=== PATIENT | male | born 1945 | race Caucasian/White ===

== ENCOUNTER 2017-06-19 10:20 | Inpatient (IN) | payer OTHER ==
[~2017-06-19] VITALS: Ht 188 cm; Wt 77.2 kg
[2017-06-19 10:42] VITALS: Ht 188 cm; Wt 77.2 kg
[2017-06-19 11:23] LABS: BASOPHIL % 0.1 % (0-2); PLATELET COUNT 220 x10^3mcL (130-400); RED CELL DISTRIBUTION WIDTH 12.9 % (11.5-14.5)
[2017-06-19 11:29] LABS: CALCIUM 8.4 mg/dL (8.5-10.1); CARBON DIOXIDE 27.1 mmol/L (21-32); CHLORIDE SERUM 101 mmol/L (98-107); GFR1 > 60 mL/min; GLUCOSE SERUM 188 mg/dL (74-106); POTASSIUM SERUM 3.7 mmol/L (3.5-5.1); SODIUM SERUM 138 mmol/L (136-145)
[2017-06-19 11:34] LABS: ALBUMIN 4.7 g/dL (3.4-5.0); ALKALINE PHOSPHATASE 80 U/L (46-116); ALT/SGPT 19 U/L (16-63); AST/SGOT 21 U/L (15-37); BILIRUBIN TOTAL 1.1 mg/dL (0.20-1.00); TOTAL PROTEIN, SERUM 7.4 g/dL (6.4-8.2)
[2017-06-19 14:05] VITALS: BP 119/67
[2017-06-19 14:34] LABS: CHOLESTEROL/HDL RATIO 3.1; MAGNESIUM 2.1 mg/dL (1.8-2.4); PHOSPHOROUS 2.8 mg/dL (2.5-4.9)
[2017-06-19 14:43] LABS: T3 TOTAL 1.01 ng/mL
[2017-06-19 14:45] LABS: FREE T4 1.2 ng/dL (0.76-1.46); FREE THYROXINE INDEX 3.3 ug/dL (1.4-4.5); T4(THYROXINE) 10.1 ug/dL (4.7-13.3)
[2017-06-19 15:10] LABS: microscopic required? NO
[2017-06-19 15:17] LABS: UA SPECIFIC GRAVITY 1.025 (1.005-1.035); urine erythrocyte NEGATIVE (NEGATIVE)
[2017-06-19 17:20] VITALS: BP 130/73
[2017-06-19 22:07] VITALS: BP 117/66
[2017-06-20 05:34] VITALS: BP 101/70
[2017-06-20 06:05] LABS: BASOPHIL % 0.4 % (0-2); PLATELET COUNT 192 x10^3mcL (130-400); RED CELL DISTRIBUTION WIDTH 12.8 % (11.5-14.5)
[2017-06-20 06:27] LABS: CALCIUM 8.1 mg/dL (8.5-10.1); CARBON DIOXIDE 25.5 mmol/L (21-32); CHLORIDE SERUM 107 mmol/L (98-107); CREATININE SERUM 0.9 mg/dL (0.7-1.3); GLUCOSE SERUM 100 mg/dL (74-106); POTASSIUM SERUM 3.8 mmol/L (3.5-5.1); SODIUM SERUM 142 mmol/L (136-145)
[2017-06-20] MEDS ORDERED: SIMVASTATIN10 M1 PO (06:52)
[2017-06-20] MEDS ORDERED: NEU300 PO (06:52)
[2017-06-20 09:15] VITALS: BP 104/68
[2017-06-20 12:10] VITALS: BP 117/65
[2017-06-20] MEDS ORDERED: IBUPROFEN800 MG PO (13:18)
[2017-06-20] MEDS ORDERED: FLE10 PO (13:18)
== END 2017-06-20 15:28 | disposition home or self-care (01) | DRG 205 ==
LOC: ED 10:20 → DU 13:03
PROVIDERS: Emergency Medicine; Family Medicine
DX: M94.0 Chondrocostal junction syndrome [Tietze] (principal); N17.0 Acute kidney failure with tubular necrosis; R55 Syncope and collapse; M50.122 Cervical disc disorder at C5-C6 level with radiculopathy; M50.11 Cervical disc disorder with radiculopathy, high cervical region; M19.012 Primary osteoarthritis, left shoulder; M19.011 Primary osteoarthritis, right shoulder; E83.51 Hypocalcemia; I10 Essential (primary) hypertension; R73.03 Prediabetes; E80.6 Other disorders of bilirubin metabolism; Z68.21 Body mass index [BMI] 21.0-21.9, adult
CPT/HCPCS: 83880; 84439; J1885; J7030; Q0092

== ENCOUNTER 2018-07-31 09:03 | Inpatient (IN) | payer OTHER ==
[~2018-07-31] VITALS: Ht 188 cm; Wt 66.5 kg
[~2018-07-31 09:03] MED LIST: FLE10 PO; IBUPROFEN800 MG PO; NEU300 PO; SIMVASTATIN10 M1 PO
[2018-07-31 09:10] VITALS: Ht 188 cm; Wt 66.5 kg
--- NOTE | 2018-07-31 09:12 | NUR ---
PT RETURNED TO LOBBY PENDING ROOM AVAILABILITY. VSS. RESPS E/U. NO S/S OF DISTRESS NOTED.
[2018-07-31 10:43] LABS: CALCIUM 8.9 mg/dL (8.5-10.1); CARBON DIOXIDE 31.2 mmol/L (21-32); CHLORIDE SERUM 105 mmol/L (98-107); CREATININE SERUM 1.1 mg/dL (0.7-1.3); GLUCOSE SERUM 139 mg/dL (74-106); POTASSIUM SERUM 4.6 mmol/L (3.5-5.1); SODIUM SERUM 140 mmol/L (136-145)
[2018-07-31 10:46] LABS: BASOPHIL % 0.2 % (0-2); PLATELET COUNT 248 x10^3mcL (130-400); RED CELL DISTRIBUTION WIDTH 12.5 % (11.5-14.5)
[2018-07-31 10:48] LABS: ALBUMIN 4.3 g/dL (3.4-5.0); ALKALINE PHOSPHATASE 82 U/L (46-116); ALT/SGPT 32 U/L (16-63); AST/SGOT 15 U/L (15-37); BILIRUBIN TOTAL 0.6 mg/dL (0.20-1.00); TOTAL PROTEIN, SERUM 7.2 g/dL (6.4-8.2)
--- NOTE | 2018-07-31 11:24 | NUR ---
RECEIVED IN OB ROOM, AWAKE ALERT ORIENTED, STATED HAS BEEN HAVING ISSUES WITH HIS LOWER ABDOMEN SINCE A LONG TIME, NOW SINCE 4 DAYS STARTED TO HAVE MORE PAIN TO LOWER ABDOMEN,
[2018-07-31 11:30] LABS: LIPASE 3326 IU/L (73-393)
--- NOTE | 2018-07-31 13:02 | NUR ---
US DONE, MEDICATED ORDERD FOR ABDOMINAL PAIN
[2018-07-31] MEDS ORDERED: ATENOLOL25 MG PO (13:06)
--- NOTE | 2018-07-31 13:46 | NUR ---
REPORT GIVEN TO OSWALDO
[2018-07-31 14:23] VITALS: BP 126/74
--- NOTE | 2018-07-31 14:25 | NUR ---
RECEIVED PT FROM ED VIA [facility]. ORIENTED PT TO ROOM AND SURROUNDINGS. IV NOTED TO RH PATENT AND INTACT. INSTRUCTED PT ON THE USE OF CALL LIGHT FOR ASSISTANCE. ENDORSED PT TO PRIMARY NURSE
[2018-07-31 14:31] LABS: CHOLESTEROL/HDL RATIO 4.7
--- NOTE | 2018-07-31 15:00 | NUR ---
BEGAN PATIENT CARE. FOUND PATIENT LAYING SEMIT FOWLERS IN BED, A/O X4, FOLLOWING COMMANDS, CALM AND COOPERATIVE, BREATHING UNALABORED WITH NO APPARENT DISTRESS. IV NOTED IN RIGHT HAND, SITE WITHIN NOMAL LIMITS, PATENT AND INTACT. PATINT TAUGHT ABOUT PAIN CONTROL PART OF PLAN. INSTRUCTED TO USE CALL LIGHT AT FIRST SIGN OF PAIN. PATIENT RECEPTIVE OF TEACHING. CALL LIGHT WITHIN REACH AND BED IN LOWEST POSITION.
--- NOTE | 2018-07-31 17:29 | NUR ---
ADMINISTERED GABAPENTIN PER ORDERS. PATIENT RESTING COMFROTABLE AT THIS TIME, NOT COMPLAINING OF PAIN. FAMILY AT BEDSIDE. TAUGHT ABOUT USING CALL LIGHT BEFORE PAIN STARTS. CALL LIGHT WITHIN REACH.
[2018-07-31 17:51] VITALS: BP 119/69
--- NOTE | 2018-07-31 20:40 | NUR ---
PT IS ALERT AND ORIENTED X4. BREATHING IS EVEN AND UNLABORED. PT SHOWS NO SIGNS OF RESP DISTRESS. PT HAS ACTIVE BOWEL SOUNDS, ABD FLAT AND SOFT, LAST BM WAS 07/31/18 DIARRHEA. PT IS AMBULATORY WITH NO RESTRICTIONS. PT HAS IV ON RH INFUSIGN WITH N/S INTACT AND PATENT. PT COMPLAINS OF LEFT SIDED ABD PAIN RATES /10. PT MEDICATED WITH MORPHINE. PT REMIANS ON NPO. WILL CONTINUE TO MONITOR.
--- NOTE | 2018-08-01 02:55 | NUR ---
PT AWAKE COMPLAINING OF N/V , PT WAS MEDICATED WITH ZOFRAN PRN. WILL REASSES IN 3O MIN AND CONUTINUE TO MONITOR. PT BRETHING IS EVEN AND UNLABORED.
--- NOTE | 2018-08-01 05:42 | NUR ---
PT SLEPT MOST OF THE NIGHT. NO SIGNS OF DISTRESS OR SOB. BREATHING EVEN AND UNLABORED. PT WAS NAUSES AT NIGHT GAVE ZOFRAN X1. PT WAS REASSED AND NO MORE NAUSEA. MEDICATED WITH MORPHINE X1 WITH ABD PAIN WITH RELIEF. PT WAS COPPERATIVE WITH NURSING CARE. NO DISTRESS NOTED WILL CONTINUE TO MONITOR.
[2018-08-01 05:48] VITALS: BP 102/58
[2018-08-01 06:28] LABS: BASOPHIL % 0.3 % (0-2); PLATELET COUNT 203 x10^3mcL (130-400)
[2018-08-01 06:36] LABS: CALCIUM 8.1 mg/dL (8.5-10.1); CARBON DIOXIDE 25.8 mmol/L (21-32); CHLORIDE SERUM 107 mmol/L (98-107); CREATININE SERUM 0.8 mg/dL (0.7-1.3); GLUCOSE SERUM 103 mg/dL (74-106); SODIUM SERUM 142 mmol/L (136-145)
--- NOTE | 2018-08-01 07:10 | NUR ---
RECEIVED PT FROM SUPPLY CHAIN DIRECTOR RN. Ketty/CHERYL. MED SURG. DENIES CHEST PAIN/PRESSURE. RESPIRATIONS EQUAL AND UNLABORED ON RA. DENIES SOB AT THIS TIME. PT STATES HE HAS NAUSEA ON AND OFF. PT STATES ON AND OFF ABDOMINAL PAIN. PT STATE HE CURRENTLY FEELS LIKE HE JUST HAS AN UPSET STOMACH. IV PATENT AND INFUSING TO RW. NO REDNESS OR SWELLING NOTED. WILL CONTINUE TO MONITOR. CALL LIGHT IN REACH. BED IN LOWEST POSITION.
--- NOTE | 2018-08-01 07:24 | NUR ---
SHIFT OFF REPORT HANDED TO NURSE BRIGITTE RN. ALL QAUESTION ANSWERED ANS CONCERNS. PT IS MADE AWARE.
[2018-08-01 09:08] VITALS: BP 129/63
--- NOTE | 2018-08-01 09:24 | NUR ---
PT SITTING UP AT BEDSIDE. NO ACUTE RESP DISTRESS NOTED ON RA. PT STATE HE JUST FEELS TERRIBLE. PT STATES ABDOMINAL PAIN ON AND OFF. PT STATES NAUSEA IS ON AND OFF. GIVEN PO MEDS. TOLERATED WELL. PT REFUSED COLACE. PT STATES I DONT NEED IT. I AM HAVING DIARRHEA. IV PATENT AND INFUSING. NO REDNESS OR SWELLING NOTED. WILL CONTINUE TO MONITOR. CALL LIGHT IN REACH. BED IN LOWEST POSITION.
--- NOTE | 2018-08-01 12:18 | NUR ---
PT SITTING UP IN BED. NO ACUTE RESP DISTRESS NOTED ON RA. PT STATES HIS PAIN IS INCREASING TO RUQ ABDOMEN. MEDICATED PER EMAR. IV FLUSHED WELL. NO REDNESS OR SWELLING NOTED. PT ALSO C/O NAUSEA. MEDICATED PER EMAR. PT AMBULATING IN HALLWAY, TOLERATING WELL. WILL CONTINUE TO MONITOR. CALL LIGHT IN REACH. BED IN LOWEST POSITION.
--- NOTE | 2018-08-01 13:44 | NUR ---
PT IN BED RESTING. RESPIRATIONS EQUAL AND UNLABORED ON RA. DENIES SOB. PT STATES PAIN IS THE SAME. PT DOES NOT WANT PAIN MEDICATION AT THIS TIME. PT STATES "MAYBE ILL HAVE IT TONIGHT TO HELP ME SLEEP. PT DENIES ANY NAUSEA AT THIS TIME. GIVEN PO MEDS. TOLERATED WELL. PT ASKING FOR ICE CHIPS AND WATER. SPOKE WITH BLANCA GORDILLO, PER BLANCA PT IS OKAY TO HAVE ICE CHIPS AND SMALL SIPS OF WATER. PT GIVEN ICE CHIPS. WILL CONTINUE TO MONITOR. CALL LIGHT IN REACH. BED IN LOWEST POSITION.
[2018-08-01 17:04] VITALS: BP 103/61
--- NOTE | 2018-08-01 19:05 | NUR ---
RECIEVED SHIFT HAND REPORT FRON NURSE BRIGGS. ALL QUESTIONS AND CONCERNES WERE ADDRESSED. WILL CONITNUE TO MONITOR AND COMPLETE ASSESSMENT.
--- NOTE | 2018-08-01 19:30 | NUR ---
PT IS ALERT AND OREINTED X4.PT BREATHING IS UNLABORED AND EVEN. NO SIGNS OF RESP DISTRESS. PT IS COMPLAINING OF ABDOMINAL PAIN, STATES A 09/04. WILL MEDICATE PT AND REASSES. PT ABD SOFT AND ACTIVE BOWEL SOUNDS ON ALL FOUR QUADRANTS. NO BM TODAY 08/01/18. PT IS AMBULATORY. IV IS ON RH INFUSING WITH NS AT 150 ML. WILL CONTINUE TO MONITOR PT FOR PAIN AND ANY NEEDS.
--- NOTE | 2018-08-01 20:13 | NUR ---
PT WAS MEDICATED WITH TORADOL 30 MG IV FOR ABDOMINAL PAIN. WILL CONTINUE TO MONITOR.
[2018-08-01 20:48] VITALS: BP 133/67
[2018-08-01 20:49] LABS: UA SPECIFIC GRAVITY >=1.030 (1.005-1.035); microscopic required? YES; urine erythrocyte TRACE (NEGATIVE)
--- NOTE | 2018-08-02 00:35 | NUR ---
PT C/O OF NAUSEA AND PAIN. GAVE ZOFRAN X1, MORPHINE X1. WILL REASSES.
--- NOTE | 2018-08-02 02:00 | NUR ---
PT WAS SLEEPING IN BED, EASILY AWAKEN. PT COMPLAINS OF NO NAUSEA OR PAIN AT THE MOMENT. BREATHING EASY WITH NO DISTRESS OR SOB.
--- NOTE | 2018-08-02 05:57 | NUR ---
PT WAS ASLEEP FOR LONG INTERVALS THROUGH OUT THE NIGHT. PT WOKE UP WITH C/O OF PAIN AND NAUSEA. PT WAS GIVEN TORADOL X 1, MORPHINE X1. AND ZOFRAN X1. PT BREATHING WAS EVEN AND UNLABORED. PT IS NPO BUT HAS BEEN EATING SMALL AMOUNT OF ICE CHIPS AT TIME. PT WAS COOPERATIVE WITH NURSING CARE. PT NEEDS WERE ADRESSED.
[2018-08-02 06:19] VITALS: BP 123/69
[2018-08-02 06:53] LABS: BASOPHIL % 0.1 % (0-2); PLATELET COUNT 182 x10^3mcL (130-400); RED CELL DISTRIBUTION WIDTH 12.7 % (11.5-14.5)
--- NOTE | 2018-08-02 07:00 | NUR ---
RECEIVED BESIDE REPORT FROM TRIAL EXAMINER NURSE. PATIENT RESTING COMFORTABLY IN BED. NO APPARENT DISTRESS OR DISCOMFORT NOTED. BREAHTING EVEN AND UNLABORED. NO REPSIRATORY DISTRESS NOTED. NO INDICATION OF CHEST PAIN AT THIS TIME. IV PATENT AND INTACT. ALL QUESTIONS AND CONCERNS ADDRESSED. ALL NEEDS ATTENDED TO. WILL CONTINUE TO MONITOR
--- NOTE | 2018-08-02 07:24 | NUR ---
BED SIDE HAND OFF REPORT GIVEN TO SURESH MACHADO. ALL QUESTIONS AND CONCERNED ADRESED.
[2018-08-02 08:14] LABS: CALCIUM 7.8 mg/dL (8.5-10.1); CHLORIDE SERUM 111 mmol/L (98-107); CREATININE SERUM 0.8 mg/dL (0.7-1.3); GLUCOSE SERUM 90 mg/dL (74-106); POTASSIUM SERUM 4.3 mmol/L (3.5-5.1); SODIUM SERUM 146 mmol/L (136-145)
[2018-08-02 09:43] VITALS: BP 119/59
--- NOTE | 2018-08-02 10:00 | NUR ---
ALL MORNING MEDICATIONS ADMINISTERED. PATIENT TOLERATED MEDICATION ADMINISTRATION WELL. NO ADVERSE EFFECTS NOTED. ALL NEEDS ATTENDED TO. WILL CONTINUE TO MONITOR
--- NOTE | 2018-08-02 13:15 | NUR ---
PATIENT DOWN FOR CT SCAN AT THIS TIME. ALL NEEDS ATTENDED TO.
[2018-08-02 16:41] VITALS: BP 120/58
--- NOTE | 2018-08-02 19:35 | NUR ---
RECEIVED REPORT FROM DAY SHIFT RN. PT SITTING UP IN BED. AA&O X4. NO SOB ON ROOM AIR. NO C/O PAIN AT THIS TIME. IV TO RFA, INTACT. SAFETY MEASURES IN PLACE. BED IN LOWEST POSITION SIDE RAILS UP X2. INSTRUCTED PT TO USE THE CALL LIGHT FOR ASSISTANCE. CALL LIGHT WITHIN REACH.
--- NOTE | 2018-08-02 19:42 | NUR ---
PATIENT RESTING COMFORTABLY IN BED AT THIS TIME. NO APPARENT DISTRESS OR DISCOMFORT NOTED. IV PATENT AND INTACT. ALL QUESTIONS AND CONCERNS ADDRESSED. ALL NEEDS ATTENDED TO. SAFETY PRECAUTIONS MAINTAINED. ENDORSED ALL CARE TO LAST GREASER NURSE STEPHEN
[2018-08-02 21:14] VITALS: BP 115/56
--- NOTE | 2018-08-02 22:16 | NUR ---
ZOFRAN GIVEN FOR NAUSEA/VOMITING.
--- NOTE | 2018-08-03 01:07 | NUR ---
PT RESTING WITH EYES CLOSED. NO SOB ON ROOM AIR. NO DISTRESS NOTED. CALL LIGHT WITHIN REACH. WILL CONTINUE TO MONITOR.
--- NOTE | 2018-08-03 04:35 | NUR ---
ZOFRAN GIVEN FOR NAUSEA.
[2018-08-03 05:26] VITALS: BP 122/59
--- NOTE | 2018-08-03 06:15 | NUR ---
PT RESTED IN INTERVALS THROUGHOUT SHIFT. NO SOB ON ROOM AIR. SAFETY MEASURES MAINTAINED. ALL NEEDS ATTENDED TO. WILL ENDORSE CONTINUITY OF CARE TO ONCOMING RN.
--- NOTE | 2018-08-03 07:11 | NUR ---
RECEIVED REPORT FROM STEPHEN PRINCE. PT RESTING COMFORTABLY IN BED. IV TO RFA IS PATENT AND INFUSING LR @ 150 ML/HR. NO REDNESS OR PAIN. PT ON ROOM AIR. NO C/O SOB AND NO DISTRESS NOTED. ALL QUESTIONS AND CONCERNS ADDRESSED.
[2018-08-03 07:49] LABS: CALCIUM 8.2 mg/dL (8.5-10.1); CARBON DIOXIDE 23.6 mmol/L (21-32); CHLORIDE SERUM 108 mmol/L (98-107); CREATININE SERUM 0.7 mg/dL (0.7-1.3); GLUCOSE SERUM 113 mg/dL (74-106); LIPASE 1399 IU/L (73-393); POTASSIUM SERUM 3.8 mmol/L (3.5-5.1); SODIUM SERUM 142 mmol/L (136-145)
[2018-08-03 09:02] LABS: BASOPHIL % 0.3 % (0-2); PLATELET COUNT 164 x10^3mcL (130-400); RED CELL DISTRIBUTION WIDTH 12.6 % (11.5-14.5)
[2018-08-03 09:46] VITALS: BP 125/90
--- NOTE | 2018-08-03 11:42 | NUR ---
SPOKE WITH SHIPPING PACKER BLANCA TO NOTIFY THAT PT C/O HEARTBURN AND INDIGESTION AFTER CHICKEN BROTH BREAKFAST. PT TAKING PROTONIX. PT ALSO BURPING A LOT. BLANCA TO PRESCIRBE SIMETHICONE. AWAITING ORDER.
--- NOTE | 2018-08-03 15:15 | NUR ---
PT SEEN [place]AKLING IN THE [facility].
[2018-08-03 17:40] VITALS: BP 132/66
--- NOTE | 2018-08-03 19:27 | NUR ---
REPORT GIVEN TO STEPHEN PRINCE. PT RESTING IN BED C/O CONTINUED HEARTBURN AND STOMACH UPSET. IV TO RFA IS STILL PATENT AND INFUSING LR @ 150 ML/HR. NO REDNESS OR PAIN. PT ON ROOM AIR. NO C/O SOB AND NO DISTRESS NOTED. ALL QUESTIONS AND CONCERNS ADDRESSED.
--- NOTE | 2018-08-03 19:40 | NUR ---
RECEIVED REPORT FROM DAY SHIFT RN. PT SITTING UP IN BED WATCHING TV. NO SOB ON ROOM AIR. NO C/O ABD PAIN. C/O NAUSEA. WILL MEDICATE PER ORDER. IV TO RFA, LR INFUSING. SAFETY MEASURES IN PLACE. BED IN LOWEST POSITION. SIDE RAILS UP X2. INSTRUCTED PT TO USE THE CALL LIGHT FOR ASSISTANCE. CALL LIGHT WITHIN REACH.
--- NOTE | 2018-08-03 20:33 | NUR ---
ZOFRAN GIVEN FOR NAUSEA.
[2018-08-03 20:59] VITALS: BP 123/64
--- NOTE | 2018-08-04 00:15 | NUR ---
PT RESTING WITH EYES CLOSED. NO SOB ON ROOM AIR. NO FACIAL GRIMACING. NO DISTRESS NOTED. CALL LIGHT WITHIN REACH. WILL CONTINUE TO MONITOR.
--- NOTE | 2018-08-04 03:38 | NUR ---
PT C/O ABD CRAMPING PAIN 11/05. MORPHINE GIVEN.
[2018-08-04 06:09] VITALS: BP 113/61
--- NOTE | 2018-08-04 06:31 | NUR ---
PT RESTING WITH EYES CLOSED. NO SOB ON ROOM AIR. BREATHING EVEN AND UNLABORED. NO DISTRESS NOTED. SAFETY MEASURES MAINTAINED. CALL LIGHT WITHIN REACH. WILL ENDORSE CONTINUITY OF CARE TO DAY SHIFT RN.
[2018-08-04 06:47] LABS: BASOPHIL % 0.3 % (0-2); PLATELET COUNT 153 x10^3mcL (130-400); RED CELL DISTRIBUTION WIDTH 12.5 % (11.5-14.5)
[2018-08-04 06:50] LABS: CALCIUM 7.8 mg/dL (8.5-10.1); CARBON DIOXIDE 30.8 mmol/L (21-32); CHLORIDE SERUM 107 mmol/L (98-107); CREATININE SERUM 0.7 mg/dL (0.7-1.3); GLUCOSE SERUM 109 mg/dL (74-106); LIPASE 248 IU/L (73-393); POTASSIUM SERUM 3.4 mmol/L (3.5-5.1); SODIUM SERUM 143 mmol/L (136-145)
--- NOTE | 2018-08-04 07:04 | NUR ---
RECEIVED REPORT FROM PETER PRINCE. PT RESTING COMFORTABLY IN BED. ALL NEEDS MET. NO SIGNIFICANT CHANGES THROUGHOUT THE NIGHT. PT REMAINS ON ROOM AIR WITH NO DISTRESS NOTED. IV TO RFA IS PATENT AND INFUSING LR @ 150 ML/HR. NO REDNESS OR PAIN. ALL QUESTIONS AND CONCERNS ADDRESSED.
--- NOTE | 2018-08-04 07:50 | NUR ---
COVERAGE FOR POTASSIUM 3.4 L HAS BEEN ORDERED.
[2018-08-04 09:17] VITALS: BP 112/39
--- NOTE | 2018-08-04 09:18 | NUR ---
SPOKE WITH BLANCA PEDERSEN TO SHOWER AND GLUTEN FREE DIET. BLANCA PEDERSEN FOR BOTH. ORDERS TO BE PLACED.
--- NOTE | 2018-08-04 09:30 | NUR ---
IN TO ADMINSITER MEDICATION. NOTIFIED THAT DIET HAS BEEN CHANGED TO GLUTEN FREE AND PATIENT IS FREE TO SHOWER. INSTRUCTED TO NOTIFY WHEN SHOWER SUPPLIES ARE NEEDED. PT VERBALIZED UNDERSTANDING.
--- NOTE | 2018-08-04 13:22 | NUR ---
IN TO ASSESS NEEDS BEFORE GOING TO LUNCH. PT RESTING COMFORTABLY IN BED. ALL NEEDS MET. WILL REASSESS AFTER LUNCH.
--- NOTE | 2018-08-04 14:12 | NUR ---
IN TO ASSESS PATIENT NEEDS AFTER LUNCH. PT SLEEPING COMFORTABLY IN BED. NO NEEDS IDENTIFIED.
[2018-08-04 18:00] VITALS: BP 125/67
--- NOTE | 2018-08-04 18:52 | NUR ---
PT CONTINUES TO IMPROVE AND IS TOLERATING DIET. POSSIBLE D/C TOMORROW. PT CURRENTLY RESTING CONFORTABLY IN BED WITH FAMILY AT BEDSIDE. ALL NEEDS MET. IV TO RFA IS PATENT AND INFUSING LR @ 150 ML/HR. NO REDNESS OR PAIN. PT ON ROOM AIR. NO C/O SOB AND NO DISTRESS NOTED. WILL ENDORSE ALL CARE TO ONCOMING NURSE.
--- NOTE | 2018-08-04 19:10 | NUR ---
REPORT RECIEVED FROM DAY SHIFT RN. PATIENT WAS SEEN AND IS RESTING COMFORTABLY IN BED WITH FAMILY AT BEDSIDE. BREATHING EVEN ON ROOM AIR. NO DISTRESS NOTED. C/O ABD DISCOMFORT NOT PAIN. TOLERABLE AT THIS TIME. DENIES CHEST PAIN/PRESSURE. IV TO THE RFA INFUSING LR. PATENT AND INTACT. NO REDNESS OR SWELLING NOTED. COMFORT AND SAFETY MEASURES MAINTAINED. BED IS LOCKED AND IN THE LOWEST POSITION. CALL LIGHT IS WITHIN REACH. WILL CONTINUE TO MONITOR.
[2018-08-04 20:47] VITALS: BP 142/69
--- NOTE | 2018-08-04 21:33 | NUR ---
PRN SIMETHICONE WAS GIVEN PRESCRIBED. C/O ABD CRAMPS AND INDIGESTION. WILL CONTINUE TO MONITOR. CALL LIGHT IS WITHIN REACH.
--- NOTE | 2018-08-04 22:45 | NUR ---
BRANDI STATES THAT THE PRN SIMETHICONE HELPED.
--- NOTE | 2018-08-05 03:11 | NUR ---
PATIENT WALKING AROUND HALLWAY AND C/O 7/10 PAIN IN HIS EPIGASRITC REGION. STATES PAIN IN A CRAMPING FEELING AND REQUESTING MORPHINE. PRN MORPHINE (SEE EMAR) WAS ADMINISTERED PRESCRIBED. WILL CONTINUE TO MONITOR PATIENT. NO DISTRESS NOTED. CALL LIGHT IS WITHIN REACH.
--- NOTE | 2018-08-05 03:47 | NUR ---
PRN ZOFRAN WAS ADMINISTERED PRESCRIBED. PATIENT C/O NAUSEA. WILL CONTINUE TO MONITOR. NO DISTRESS NOTED. BREATHING EVEN. CALL LIGHT IS WITHIN REACH. WILL CONTINUE TO MONITOR.
[2018-08-05 05:12] VITALS: BP 144/69
--- NOTE | 2018-08-05 05:30 | NUR ---
PATIENT WAS AWAKE MAJORITY OF THE NIGHT. PATIENT C/O FEELING WORSE THAN BEFORE. STATES HE FEELS HE GOT WORSE AFTER HAVING A REGULAR DIET FOR DINNER LAST NIGHT. C/O CRAMPING, INDIGESTION, AND ABD DISCOMFORT AND PAIN THROUGHOUT THE NIGHT. MEDICATED WITH PRN SIMETHICONE X1 WITH MILD RELIEF, PRN MORPHINE X1 WITH MILD RELIEF, AND PRN ZOFRAN WITH GOOD RELIEF. LR INFUSING WELL TO THE RFA. PATENT AND INTACT. NO REDNESS OR SWELLING NOTED. DENIES CHEST PAIN. ABD ROUND/SOFT. NO DISTENTION NOTED. WILL NOTIFY DR QUICK ABOUT PATIENT'S CONDITION. COMFORT AND SAFETY MEASURES MAINTAINED. CALL LIGHT IS WITHIN REACH. WILL CONTINUE TO MONITOR AND ENDORSE CARE TO DAY SHIFT RN.
--- NOTE | 2018-08-05 06:56 | NUR ---
PAGE GATED DR QUICK ABOUT BP/SBP TRENDING UP. IN THE 130-140 THROUGHOUT THE NIGHT. NO NEW ORDERS AT THIS TIME. WILL ENDORSE CARE TO DAY SHIFT RN
[2018-08-05 09:40] VITALS: BP 100/70
--- NOTE | 2018-08-05 09:49 | NUR ---
AT 0710 - RECEIVED PATIENT FROM NIGHT NURSE. AWAKE, ALERT AND ORIENTED. NO C/O PAIN AT THIS TIME. IV INFUSING LR AT 150 ML/HR. AT 0830 - HAS HAD CLEAR LIQUID BREAKFAST. SPOKE WITH PATIENT ABOUT CURRENT MEDICATIONS - INDICATIONS AND EFFECTS. AT 0900 - PATIENT AMBULATING IN HALLWAY. AT 0930 - SEEN BY DR BULL. NEW ORDERS RECEIVED. FOR EGD LATER TODAY. KEEP PT NPO. AT 0950 - IV INFUSION OF LR REDUCED TO 80 ML/HR PER NEW ORDERS.
--- NOTE | 2018-08-05 12:28 | NUR ---
AT 1130 - CONSENTS FOR EGD AND MODERATE SEDATION SIGNED BY PATIENT. PATIENT HAS BEEN NPO SINCE [phone]. PREPARED FOR PROCEDURE.
--- NOTE | 2018-08-05 12:36 | NUR ---
REPORT GIVEN TO GI NURSE. PATIENT WILL BE GOING FOR EGD SHORTLY. IV SALINE LOCKED
--- NOTE | 2018-08-05 14:34 | NUR ---
Initial Nutrition Assessment: KELSEY SANABRIA [place] Dx: Pancreatitis PMHx: HTN, High cholesterol, prostate PSHx: none Labs: BG 109H, K 3.4L, CA7.8L Meds: Colace, Lipitor, morphine, pancrease, zofran Diet: CLD PO Intake: 100% Ht: 187.96cm (74") Wt: 66.4 kg (146#) BMI: 18.8 kg/m2 Bed scale: 172# IBW: 190# (86 kg) %IBW: 76 UBW: 170-172# Age: 73/M Food Allergies: NKFA Skin: intact Arley: 21 Edema: none GI: denies N/V, has cramps, reports stool being mushy/ not formed Last BM: 08/04/18 Per H&P, Pt is a 73-year-old male presents complaining nausea epigastric pain and diarrhea now for the past 3 days symptoms are moderate in severity nothing seems to make it better worse no provoking event. Patient denies any fevers chills dysuria urgency frequency. Patient denies large alcohol consumption admits that he has 1 beer a week. RDN Visit (08/05): Pt was alert and oriented and had several questions regarding nutrition, healthy eating and gluten free diet. Pt said that he does not believe that his weight is 146# currently and does not trust the weighing scale. Pt did say that he had some weight loss as he weighed 162# last month. Problem with: N/V/D/C: some diarrhea Problems with: Chewing/Swallowing: none Current appetite: fair Recent wt change: ~ 10# x 1 month %wt change: difficult to determine d/t inaccuracy Vitamin/Supplement use: MVI Special diet at home: Tries to follow gluten free diet Physical activity: walking Nutrition education given: Diet education on pancreatitis was provided using [facility] handout on "Pancreatitis Nutrition Therapy". Pt verbalized understanding and did not have any questions at this time. Food-drug interactions: Colace- high fiber w/1200-1500ml fluids, Lipitor- avoid grapefruit Education given: Estimated Nutritional Needs Based on ideal body weight 86 kg Energy: 5394-4685 kcal/d (25-30 kcal/day) Protein: 86-103 g/d (1.0-1.2 g/kg)- preserve LBM Fluid: 6986-2146 ml/d (1 ml/kcal) or per doctor Nutrition Diagnosis 1. Altered GI function related to pancreatitis as evidenced by diarrhea. Intervention 1. Recommend continuing clear liquid diet. 2. Progress to cardiac diet when medically appropriate/tolerated. Monitor/Evaluate Goal: PO intake at least 75% of estimated needs Monitor: PO intake, Labs, GI function F/U in 3-5 days as moderate risk 08/08-
--- NOTE | 2018-08-05 14:34 | NUR ---
1. Recommend continuing clear liquid diet. 2. Progress to cardiac diet when medically appropriate/tolerated.
--- NOTE | 2018-08-05 15:22 | NUR ---
AT 1430 - PATIENT BACK IN ROOM FOLLOWING EGD AND BX UNDER MODERATE SEDATION. AWAKE, ALERT AND ORIENTED. AT 1510 - PATIENT AMBULATING IN HALLWAY.
[2018-08-05 15:40] VITALS: BP 135/69
[2018-08-05 17:30] VITALS: BP 129/69
--- NOTE | 2018-08-05 18:06 | NUR ---
AWAKE, ALERT, ORIENTED. TOLERATING FULL LIQUID DIET. IV INFUSING LR AT 80 ML/HR. VOIDING IN URINAL. GOOD OUTPUT. NO C/O PAIN. VSS. AFEBRILE. FAMILY AT BEDSIDE. WILL ENDORSE CARE TO NIGHT NURSE.
--- NOTE | 2018-08-05 18:52 | NUR ---
IV FROM RFA LEAKING. CATHETER REMOVED ITNACT AND IV RESITED IN LFA. SALINE LOCKED PER NEW ORDERS POST EGD.
--- NOTE | 2018-08-05 19:30 | NUR ---
RECEIVED PT LAYING IN BED, NO ACUTE DISTRESS OBSERVED, DENIES PAIN OR DISCOMFORT AT THIS TIME. AA/OX4. MED-SURG, NO TELE, NO CP. PULSES PRESENT AND EQUAL THROUGHOUT, NO EDEMA. BREATHING ON RA, EVEN AND UNLABORED, NO SOB OR DYSPNEA OBSERVED. ABD ROUND AND SOFT WITH ACTIVE BOWEL SOUNDS, DENIES N/V/D. FULL LIQUID DIET, TOLERATING WELL. FREELY VOIDS URINE WITH BRP. AMBULATORY AND ABLE TO REPOSITION SELF IN BED. IV TO LFA IN PLACE, DRY, PATENT, INTACT, S/L AT THIS TIME, NO PAIN, REDNESS OR SWELLING WHEN FLUSHED WITH NS. COMFORT AND SAFETY MEASURES IN PLACE. ALL NEEDS ASSESSED AND ATTENDED TO. CALL LIGHT WITHIN REACH. WILL CONTINUE TO MONITOR
--- NOTE | 2018-08-05 19:45 | NUR ---
PT AMBULATING HALLS AT THIS TIME. NO DISTRESS OBSERVED
[2018-08-05 20:40] VITALS: BP 107/61
[2018-08-06 05:45] VITALS: BP 91/55
[2018-08-06 05:49] VITALS: BP 113/67
--- NOTE | 2018-08-06 05:49 | NUR ---
NO SIGNIFICANT CHANGES TO REPORT, PT COMPLIED WITH NURSING CARE THROUGHOUT THE SHIFT WITH NO ACUTE EVENTS OVERNIGHT. NO ACUTE DISTRESS OBSERVED AT THIS TIME, PT LAYING IN BED, BREATHING EVEN AND UNLABORED, AROUSABLE TO VERBAL STIMULI. COMFORT AND SAFETY MEASURES MAINTAINED. ALL NEEDS ASSESSED AND ATTENDED TO. CALL LIGHT WITHIN REACH. WILL CONTINUE TO MONITOR AND ENDORSE CARE TO DAY SHIFT NURSE
[2018-08-06 06:31] LABS: BASOPHIL % 0.4 % (0-2); PLATELET COUNT 174 x10^3mcL (130-400); RED CELL DISTRIBUTION WIDTH 12.7 % (11.5-14.5)
[2018-08-06 06:33] LABS: CALCIUM 8.3 mg/dL (8.5-10.1); CARBON DIOXIDE 31.6 mmol/L (21-32); CHLORIDE SERUM 107 mmol/L (98-107); CREATININE SERUM 0.8 mg/dL (0.7-1.3); GLUCOSE SERUM 97 mg/dL (74-106); POTASSIUM SERUM 3.3 mmol/L (3.5-5.1); SODIUM SERUM 145 mmol/L (136-145)
--- NOTE | 2018-08-06 07:20 | NUR ---
RECEIVED PT IN NO ACUTE DISTRESS. SLEEPING IN BED, EASILY AROUSABLE. RESP EVEN AND UNLABORED ON RA. NO PAIN NOTED. IV TO LFA, NO REDNESS OR SWELLING NOTED. BED IN LOW POSITION, CALL LIGHT WITHIN REACH. WILL CONTINUE TO MONITOR.
[2018-08-06 08:41] VITALS: BP 123/67
--- NOTE | 2018-08-06 09:16 | NUR ---
PT C/O PAIN TO HIS BACK, MULTIPLE SCATTERED RED SPOTS NOTED TO BACK, PICTURES TAKEN AND PLACED IN CHART. PT GIVEN WIPES AND LOTION REQUESTED FOR HIS BACK. WILL CONTINUE TO MONITOR.
[2018-08-06 11:06] VITALS: BP 123/67
--- NOTE | 2018-08-06 12:34 | NUR ---
PT RESTING IN BED. NO ACUTE DISTRESS. AAOX4. RESP EVEN AND UNLABORED ON RA. NO C/O PAIN. REPORTED HAVING BM X1, FORMED. IV TO LFA NO REDNESS OR SWELLING NOTED. HOB SLIGHLTY ELEVATED. CALL LIGHT WITHIN REACH. WILL CONTINUE TO MONITOR.
--- NOTE | 2018-08-06 13:22 | NUR ---
PT AAX4, AMBULATORY, VERBAL, NO DISTRESS/PAIN AT THIS TIME, GIVEN PRESCRIPTION, DC EDU PROVIDED, PT VERBALIZED UNDERSTANDING, INSTRUCTED PT TO F/U WITH PCP AND DR. BULL. IV DC WITH CATH INTACT. BELONGING WITH PT. PT WAITING FOR RIDE HOME. WILL CONTIUE TO MONITOR
--- NOTE | 2018-08-06 14:21 | NUR ---
PT DISCHARGED TO HOME IN NO ACUTE DISTRESS. AWAKE, ALERT, AND ORIENTED. AMBULATORY. BELONGINGS WITH PT. SANCHO GRANADOS ACCOMPANIED PT TO LOBBY.
== END 2018-08-06 14:21 | disposition home or self-care (01) | DRG 440 ==
LOC: ED 09:03 → MU 12:25
PROVIDERS: Internal Medicine Gastroenterology; ADMIT Family Medicine
PROC: 0DB98ZX Excision of Duodenum, Via Natural or Artificial Opening Endoscopic, Diagnostic (ICD-10-PCS; principal; 2018-08-05 12:00)
PROC: 0DB68ZX Excision of Stomach, Via Natural or Artificial Opening Endoscopic, Diagnostic (ICD-10-PCS; 2018-08-05 12:00)
DX: K85.90 Acute pancreatitis without necrosis or infection, unspecified (principal); K25.9 Gastric ulcer, unspecified as acute or chronic, without hemorrhage or perforation; K26.7 Chronic duodenal ulcer without hemorrhage or perforation; K29.80 Duodenitis without bleeding; F43.10 Post-traumatic stress disorder, unspecified; F12.10 Cannabis abuse, uncomplicated; I10 Essential (primary) hypertension; E78.00 Pure hypercholesterolemia, unspecified
CPT/HCPCS: 43235; G0378; J1200; J1610; J1885; J2250; J2270; J2310; J2405; J3010; J3490; J7030; J7120; Q9967